=== PATIENT | female | born 1995 | race African-American/Black ===

== ENCOUNTER 2018-06-24 15:01 | Inpatient (IN) ==
[2018-06-24] MEDS ORDERED: ONDANSETRON 4 MG/2 ML VIAL IV PRN (15:30)
[2018-06-24] MEDS ORDERED: LACTATED RINGERS 1,000 ML IV ONE (15:30)
[2018-06-24] MEDS ORDERED: BUTORPHANOL 1 MG/ML VIAL IV PRN (15:30)
[2018-06-24] MEDS ORDERED: LACTATED RINGERS 1,000 ML IV SCH (15:30)
[2018-06-24 16:18] LABS: Basophils % 0.2 % (0.0-0.8); Eosinophils % 0.5 % (0.00-10.9); Hematocrit 32.1 VOL% (35.7-47.0); Hemoglobin 10.2 GM/DL (12.0-16.0); Immature Granulocytes % 1.1 %; Immature Granulocytes Absolute 0.07 #; Lymphocytes % 32.4 % (21.3-54.2); Mean Corpuscular HGB Conc 31.8 GM/DL (32-36); Mean Corpuscular Hemoglobin 22 PG (27-34); Mean Corpuscular Volume 70.5 FL (87-102); Mean Platelet Volume 10.3 FL (9.6-12.0); Monocytes # 0.7 10*3/uL (0.11-0.8); Neutrophils # 3.3 10*3/uL (1.4-7.4); Neutrophils % 53.8 % (38.7-73.9); Platelet Count 161 T/CUMM (130-400); Red Blood Count 4.55 MC/CUMM (3.8-5.5); Red Cell Distribution Width 15.4 % (9.3-17.3); White Blood Count 6.2 T/CUMM (4-12)
[2018-06-24 16:24] LABS: Alanine Aminotransferase 15 U/L (13-56); Albumin 2.7 G/DL (3.4-5.0); Alkaline Phosphatase 250 U/L (45-117); Aspartate Amino Transferase 13 U/L (0-37); Bilirubin,Total < 0.39 MG/DL (0.2-1.0); Blood Urea Nitrogen 5 MG/DL (7-18); Calcium 9.6 MG/DL (8.5-10.1); Glucose 89 MG/DL (74-106); Osmolality,Calculated 272.5 MOS/KG (273-304); Sodium 139 MMOL/L (136-145); Total Protein 6.8 G/DL (6.4-8.3); Uric Acid 4.5 MG/DL (2.6-6.0)
[2018-06-24] MEDS ORDERED: DINOPROSTONE VAG GEL 10 MG SYRINGE VAG ONE (16:30)
[2018-06-24] MEDS: MEPERIDINE 50 MG/1 ML VIAL IV PRN (21:43)
[2018-06-25] MEDS ORDERED: OXYTOCIN/LR 20 UNIT/1,000 ML BAG IV SCH (02:00)
[2018-06-25] MEDS: MEPERIDINE 50 MG/1 ML VIAL IV PRN (02:16)
[2018-06-25] MEDS ORDERED: FAMOTIDINE 20 MG/2 ML VIAL IV ONE (02:31)
[2018-06-25] MEDS ORDERED: PROMETHAZINE 25 MG/1 ML VIAL IM ONE (02:31)
[2018-06-25] MEDS ORDERED: ePHEDrine 50 MG/ML AMP IV PRN (02:31)
[2018-06-25] MEDS ORDERED: diphenhydrAMINE 50 MG/1 ML VIAL IV PRN (02:31)
[2018-06-25] MEDS ORDERED: NALOXONE 0.4 MG/ML VIAL IV PRN (02:31)
[2018-06-25] MEDS ORDERED: hydrOXYzine HCL 25 MG/1 ML VIAL IM PRN (02:31)
[2018-06-25] MEDS ORDERED: CITRIC ACID/SODIUM CITRATE 30 ML UDCUP PO ONE (02:31)
[2018-06-25] MEDS ORDERED: fentaNYL 2 MCG/ROPIV 0.2% EPID 100 ML EPIDURAL SCH (03:00)
[2018-06-25] MEDS ORDERED: miSOPROStol 200 MCG TABLET ONE (07:01)
[2018-06-25] MEDS ORDERED: OXYTOCIN/LR 0 UNIT/0 ML BAG IV ONE (07:01)
[2018-06-25] MEDS ORDERED: TRANEXAMIC ACID 1,000 MG/10 ML VIAL ONE (07:01)
[2018-06-25] MEDS ORDERED: CARBOPROST TROMETHAMINE 250 MCG/ML AMP IM ONE (07:02)
[2018-06-25] MEDS ORDERED: METHYLERGONOVINE 0.2 MG/1 ML AMP ONE (07:02)
[2018-06-25 08:10] LABS: Apearance,Urine CLEAR (Clear); Bilirubin,Urine Negative (Negative); Blood, Urine Negative (Negative); Glucose,Urine (UA) Negative (Negative); Ketones,Urine Negative (Negative); Mucus,Urine Occasional /LPF (Occasional); Nitrite,Urine Negative (Negative); Protein,Urine Negative; RBC,Urine <1 /HPF (0-4); Squamous Epithelial Cell,Urine Occasional /HPF (0-10); Urine Color Yellow (Yellow); Urine Specific Gravity 1.018 (1.001-1.035); Urine Urobilinogen < 2.0 EU/DL (0.2-1.0); WBC,Urine 1 /HPF (0-6)
[2018-06-25 08:38] LABS: Cord Venous Blood HCO3 21.9 MMOL/L; Cord Venous Blood PCO2 44.1 MMHG; Cord Venous Blood PO2 28.7
[2018-06-25] MEDS: IBUPROFEN 800 MG TABLET PO PRN ×2 (10:20→20:10)
[2018-06-25] MEDS ORDERED: WITCH HAZEL PADS 100/JAR TOP PRN (11:02)
[2018-06-25] MEDS ORDERED: ACETAMINOPHEN/CODEINE 300-30 MG TABLET PO PRN (11:02)
[2018-06-25] MEDS ORDERED: LANOLIN 50% CREAM 0.3 OZ TUBE TOP PRN (11:02)
[2018-06-25] MEDS ORDERED: HYDROCORTISONE 2.5% RECTAL CREAM 30 GM TUBE TOP PRN (11:02)
[2018-06-25] MEDS ORDERED: BENZOCAINE 20%/MENTHOL 0.5% SPRAY 56 GM CAN TOP PRN (11:02)
[2018-06-25] MEDS ORDERED: oxyCODONE/ACETAMINOPHEN 5-325 MG TABLET PO PRN (11:02)
[2018-06-25] MEDS ORDERED: IBUPROFEN 800 MG TABLET PO PRN (11:02)
[2018-06-25] MEDS ORDERED: BISACODYL 10 MG SUPP RECTAL PRN (11:02)
[2018-06-25] MEDS ORDERED: DIPH/TET/ACEL PERT BOOSTER VACCINE 0.5 ML VIAL IM ONE (11:02)
[2018-06-25] MEDS ORDERED: ACETAMINOPHEN 325 MG TABLET PO PRN (11:02)
[2018-06-25] MEDS ORDERED: RHO(D) IMMUNE GLOBULIN 300 MCG SYRINGE IM ONE (11:30)
[2018-06-25] MEDS ORDERED: MEASLES/MUMPS/RUBELLA VACCINE 0.5 ML VIAL SUBCUT ONE (11:30)
[2018-06-25] MEDS: DOCUSATE SODIUM 100 MG CAPSULE PO SCH (20:09)
[2018-06-26 05:54] LABS: Basophils % 0.3 % (0.0-0.8); Eosinophils # 0.1 10*3/uL (0.0-0.87); Hematocrit 31.7 VOL% (35.7-47.0); Hemoglobin 9.8 GM/DL (12.0-16.0); Immature Granulocytes Absolute 0.09 #; Lymphocytes # 3.3 10*3/uL (1.4-4.0); Lymphocytes % 34.7 % (21.3-54.2); Mean Corpuscular HGB Conc 30.9 GM/DL (32-36); Mean Corpuscular Hemoglobin 22 PG (27-34); Mean Corpuscular Volume 71.6 FL (87-102); Monocytes # 0.8 10*3/uL (0.11-0.8); Neutrophils # 5.2 10*3/uL (1.4-7.4); Platelet Count 174 T/CUMM (130-400); Red Blood Count 4.43 MC/CUMM (3.8-5.5); Red Cell Distribution Width 15.4 % (9.3-17.3); White Blood Count 9.4 T/CUMM (4-12)
[2018-06-26] MEDS: FERROUS SULFATE 325 MG TABLET PO SCH ×2 (08:07→20:48)
[2018-06-26] MEDS: IBUPROFEN 800 MG TABLET PO PRN ×2 (08:07→16:01)
[2018-06-26] MEDS: DOCUSATE SODIUM 100 MG CAPSULE PO SCH ×2 (08:07→20:48)
[2018-06-26] MEDS: oxyCODONE/ACETAMINOPHEN 5-325 MG TABLET PO PRN ×3 (08:07→23:42)
[2018-06-27 07:40] VITALS: BP 130/73
[2018-06-27] MEDS: DOCUSATE SODIUM 100 MG CAPSULE PO SCH (09:25)
[2018-06-27] MEDS: FERROUS SULFATE 325 MG TABLET PO SCH (09:26)
== END 2018-06-27 13:15 | disposition home or self-care (01) | DRG 560 ==
LOC: N.LDOUT 15:01 → N.LD 15:05 → N.OB 06-25 11:01
PROVIDERS: ADMIT Obstetrics & Gynecology; ATTEND Obstetrics & Gynecology

== ENCOUNTER 2020-12-30 08:25 | Inpatient (IN) ==
[2020-12-30] MEDS ORDERED: BUTORPHANOL 1 MG/ML VIAL IV PRN (08:48)
[2020-12-30] MEDS ORDERED: OXYTOCIN/LR 20 UNIT/1,000 ML BAG IV PRN (08:48)
[2020-12-30] MEDS ORDERED: ONDANSETRON 4 MG/2 ML VIAL IV PRN ×2 (08:48→13:48)
[2020-12-30] MEDS ORDERED: LACTATED RINGERS 1,000 ML IV PRN (08:48)
[2020-12-30] MEDS ORDERED: MEPERIDINE 50 MG/1 ML VIAL IM PRN (08:48)
[2020-12-30] MEDS ORDERED: BUTORPHANOL 2 MG/ML VIAL IV PRN (08:48)
[2020-12-30] MEDS ORDERED: hydrOXYzine HCL 25 MG/1 ML VIAL IM PRN (08:57)
[2020-12-30] MEDS ORDERED: ONDANSETRON 4 MG/2 ML VIAL IV ONE (08:57)
[2020-12-30] MEDS ORDERED: CITRIC ACID/SODIUM CITRATE 30 ML UDCUP PO ONE (08:57)
[2020-12-30] MEDS ORDERED: ePHEDrine 50 MG/ML VIAL IV PRN (08:57)
[2020-12-30] MEDS ORDERED: diphenhydrAMINE 50 MG/1 ML VIAL IV PRN ×2 (08:57)
[2020-12-30] MEDS ORDERED: PROMETHAZINE 25 MG/1 ML VIAL IM ONE (08:57)
[2020-12-30] MEDS ORDERED: LACTATED RINGERS 1,000 ML IV ONE (08:57)
[2020-12-30] MEDS ORDERED: FAMOTIDINE 20 MG/2 ML VIAL IV ONE (08:57)
[2020-12-30] MEDS ORDERED: NALOXONE 0.4 MG/ML VIAL IV PRN (08:57)
[2020-12-30] MEDS ORDERED: fentaNYL 2 MCG/ROPIV 0.2% EPID 100 ML EPIDURAL SCH (09:00)
[2020-12-30 09:04] LABS: Basophils % 0.3 % (0.0-0.8); Eosinophils # 0.1 10*3/uL (0.0-0.87); Eosinophils % 0.8 % (0.00-10.9); Hematocrit 36.3 VOL% (35.7-47.0); Hemoglobin 11.6 GM/DL (12.0-16.0); Immature Granulocytes % 1.1 %; Immature Granulocytes Absolute 0.07 #; Lymphocytes # 2.3 10*3/uL (1.4-4.0); Lymphocytes % 36.8 % (21.3-54.2); Mean Corpuscular Volume 70.3 FL (87-102); Mean Platelet Volume 10.3 FL (9.6-12.0); Monocytes % 9.4 % (1.7-12.7); Neutrophils % 51.6 % (38.7-73.9); Platelet Count 225 T/CUMM (130-400); Red Blood Count 5.16 MC/CUMM (3.8-5.5); Red Cell Distribution Width 16.4 % (9.3-17.3); White Blood Count 6.3 T/CUMM (4-12)
[2020-12-30 09:41] LABS: Atypical Lymphocytes Few; Band Neutrophils 1 % (0-10); Eosinophils 1 % (0-10); Lymphocytes 33 % (20-55); Platelet Estimate Normal; Segmented Neutrophils 54 % (50-85); Total Cells Counted 100
[2020-12-30 09:42] LABS: Anisocytosis 1+
[2020-12-30 09:45] LABS: Alanine Aminotransferase 12 U/L (13-56); Albumin 2.7 G/DL (3.4-5.0); Alkaline Phosphatase 367 U/L (45-117); Aspartate Amino Transferase 8 U/L (0-37); Bilirubin,Total < 0.39 MG/DL (0.2-1.0); Blood Urea Nitrogen 10 MG/DL (7-18); Calcium 8.8 MG/DL (8.5-10.1); Carbon Dioxide 22 MMOL/L (21-32); Estimated Glom Filtration Rate 167 ML/MIN; Glucose 89 MG/DL (74-106); Osmolality,Calculated 272.7 MOS/KG (273-304); Potassium 4.3 MMOL/L (3.5-5.1); Sodium 138 MMOL/L (136-145); Total Protein 6.5 G/DL (6.4-8.2); Uric Acid 4.3 MG/DL (2.6-6.0)
[2020-12-30] MEDS ORDERED: miSOPROStoL 200 MCG TABLET ONE (13:32)
[2020-12-30] MEDS ORDERED: OXYTOCIN/LR 30 UNIT/1,000 ML BAG IV ONE (13:33)
[2020-12-30] MEDS ORDERED: DIPH/TET/ACEL PERT BOOSTER VACCINE 0.5 ML VIAL IM ONE (13:48)
[2020-12-30] MEDS ORDERED: RHO(D) IMMUNE GLOBULIN 300 MCG SYRINGE IM ONE (13:48)
[2020-12-30] MEDS ORDERED: MEASLES/MUMPS/RUBELLA VACCINE 0.5 ML VIAL SUBCUT ONE (13:48)
[2020-12-30] MEDS ORDERED: HYDROCORTISONE 2.5% RECTAL CREAM 30 GM TUBE TOP PRN (13:48)
[2020-12-30] MEDS ORDERED: BISACODYL 10 MG SUPP RECTAL PRN (13:48)
[2020-12-30] MEDS ORDERED: WITCH HAZEL PADS 100/JAR TOP PRN (13:48)
[2020-12-30] MEDS ORDERED: oxyCODONE/ACETAMINOPHEN 5-325 MG TABLET PO PRN (13:48)
[2020-12-30] MEDS ORDERED: BENZOCAINE 20%/MENTHOL 0.5% SPRAY 56 GM CAN TOP PRN (13:48)
[2020-12-30] MEDS ORDERED: ACETAMINOPHEN 325 MG TABLET PO PRN (13:48)
[2020-12-30] MEDS ORDERED: OXYTOCIN/LR 20 UNIT/1,000 ML BAG IV ONE (13:48)
[2020-12-30] MEDS ORDERED: LANOLIN 50% CREAM 0.3 OZ TUBE TOP PRN (13:48)
[2020-12-30 14:06] LABS: Cord Arterial Blood HCO3 22.6 MMOL/L
[2020-12-30 14:08] LABS: Cord Venous Blood HCO3 22.2 MMOL/L; Cord Venous Blood PCO2 38.8 MMHG; Cord Venous Blood PO2 29.1 MMHG
[2020-12-30] MEDS: IBUPROFEN 800 MG TABLET PO PRN (17:07)
[2020-12-31 05:50] LABS: Basophils % 0.4 % (0.0-0.8); Eosinophils # 0.1 10*3/uL (0.0-0.87); Eosinophils % 1.1 % (0.00-10.9); Hematocrit 32.5 VOL% (35.7-47.0); Hemoglobin 10.2 GM/DL (12.0-16.0); Immature Granulocytes Absolute 0.08 #; Lymphocytes # 2.5 10*3/uL (1.4-4.0); Lymphocytes % 31.2 % (21.3-54.2); Mean Corpuscular HGB Conc 31.4 GM/DL (32-36); Mean Corpuscular Volume 71.7 FL (87-102); Mean Platelet Volume 10.3 FL (9.6-12.0); Monocytes % 9.1 % (1.7-12.7); Neutrophils % 57.2 % (38.7-73.9); Platelet Count 198 T/CUMM (130-400); Red Blood Count 4.53 MC/CUMM (3.8-5.5); Red Cell Distribution Width 16.4 % (9.3-17.3); White Blood Count 8.1 T/CUMM (4-12)
[2020-12-31 06:34] LABS: Platelet Estimate Normal
[2020-12-31 06:35] LABS: Anisocytosis 1+; Hypochromasia 1+; Microcytosis 2+; Polychromasia Slight; Tear Drop Cells Few
[2020-12-31] MEDS: DOCUSATE SODIUM 100 MG CAPSULE PO SCH ×3 (08:38→22:19)
[2020-12-31] MEDS: IBUPROFEN 800 MG TABLET PO PRN ×3 (08:38→22:55)
[2020-12-31] MEDS: oxyCODONE/ACETAMINOPHEN 5-325 MG TABLET PO PRN ×3 (08:38→22:56)
[2021-01-01 08:08] VITALS: BP 134/89
[2021-01-01] MEDS: DOCUSATE SODIUM 100 MG CAPSULE PO SCH (09:08)
== END 2021-01-01 13:40 | disposition home or self-care (01) | DRG 560 ==
LOC: N.LDOUT 08:25 → N.LD 08:26 → N.OB 18:24
PROVIDERS: ADMIT Obstetrics & Gynecology; ATTEND Obstetrics & Gynecology